=== PATIENT | male | born 2005 | race Caucasian/White ===

== ENCOUNTER 2023-11-27 10:06 | Emergency (ER) | payer OTHER ==
[~2023-11-27] VITALS: Ht 170.2 cm; Wt 70.0 kg
[2023-11-27 10:25] VITALS: O2SAT 100
[2023-11-27 10:26] VITALS: BP 118/73; PULSE 73; RESP 18; TEMP 98.5; O2SAT 98
[2023-11-27] MEDS: IBUPROFEN 600MG TABLET PO ONE (11:47)
[2023-11-27] MEDS: LIDOCAINE HCL/PF 1% 10 MG/ML 5ML VIAL INFIL ONE (11:47)
[2023-11-27] MEDS: BACITRACIN ZINC OINT UDPKT TOP ONE (11:48)
[2023-11-27] MEDS ORDERED: NAPR-681 MT (11:57)
== END 2023-11-27 11:57 | disposition home or self-care (01) ==
LOC: ER 10:06
DX: S61.012A Laceration without foreign body of left thumb without damage to nail, initial encounter (principal); X58.XXXA Exposure to other specified factors, initial encounter; Y93.89 Activity, other specified; Y92.89 Other specified places as the place of occurrence of the external cause; Y99.8 Other external cause status
CPT/HCPCS: 99283; 12001; J3490